=== PATIENT | female | born 1930 | race Caucasian/White ===

== ENCOUNTER 2018-11-22 05:40 | Day surgery (SDC) | payer MEDICARE ==
[~2018-11-22] VITALS: Ht 162.6 cm; Wt 56.0 kg
[2018-11-22 06:11] VITALS: BP 197/92
[2018-11-22] MEDS ORDERED: LACTATED RINGERS 1,000 ML IV SCH (06:12)
[2018-11-22] MEDS ORDERED: LISI-170 PO (06:33)
[2018-11-22] MEDS ORDERED: ASPI-515 PO (06:33)
[2018-11-22] MEDS ORDERED: TRAZ50TA66 PO (06:33)
[2018-11-22] MEDS ORDERED: CALC-76 PO (06:33)
[2018-11-22] MEDS ORDERED: AMIO200T42 PO (06:33)
[2018-11-22] MEDS ORDERED: METO50TA82 PO (06:33)
[2018-11-22] MEDS ORDERED: ASCO500T8 PO (06:33)
[2018-11-22] MEDS ORDERED: CHLO25TA PO (06:33)
[2018-11-22] MEDS ORDERED: PROPOFOL 10 MG/ML, 20ML ONE (07:00)
[2018-11-22] MEDS ORDERED: ONDANSETRON 2MG/ML, 2ML ONE (07:00)
[2018-11-22] MEDS ORDERED: FLUORESCEIN SODIUM 500 MG/5 ML ONE (07:07)
[2018-11-22] MEDS ORDERED: LIDOCAINE 1%-EPI 1:100K, 30ML ONE (07:07)
[2018-11-22] MEDS ORDERED: NEOMY/POLYMYXIN B GU IRR. 1 ML ONE (07:07)
[2018-11-22] MEDS ORDERED: THROMBIN 5,000 UNIT VIAL TP ONE (07:07)
[2018-11-22] MEDS ORDERED: FENTANYL PF 100 MCG/2ML ONE (07:09)
[2018-11-22] MEDS ORDERED: PROPOFOL 50 ML ONE (07:09)
[2018-11-22 07:15] LABS: ALBUMIN 3.6 g/dL (3.4-5.0); ANION GAP 7 mmol/L (5-15); CALCIUM 9.7 mg/dL (8.5-10.1); CHLORIDE 107 mmol/L (98-107)
[2018-11-22 07:18] LABS: ALANINE AMINOTRANSFERASE 20 U/L (12-78); ALKALINE PHOSPHATASE 50 U/L (45-117); BILIRUBIN,TOTAL 0.3 mg/dL (0.2-1.0); CREATININE 0.86 mg/dL (0.55-1.02)
[2018-11-22] MEDS ORDERED: OXYcodone 5 MG/5 ML ORAL.SOL UDC PO PRN (08:00)
[2018-11-22] MEDS ORDERED: EPHEDRINE 50 MG/ML, 1ML IM PRN (08:00)
[2018-11-22] MEDS ORDERED: ACETAMINOPHEN 325 MG TABLET PO PRN (08:00)
[2018-11-22] MEDS ORDERED: METOPROLOL 1 MG/ML, 5ML IV PRN (08:00)
[2018-11-22] MEDS ORDERED: PROMETHAZINE 12.5 MG SUPP PR PRN (08:00)
[2018-11-22] MEDS ORDERED: FENTANYL PF 100 MCG/2ML IV PRN (08:00)
[2018-11-22] MEDS ORDERED: MORPHINE SULFATE 4 MG/ML, 1ML IVPush PRN (08:00)
[2018-11-22] MEDS ORDERED: ONDANSETRON 2MG/ML, 2ML IV PRN (08:00)
[2018-11-22] MEDS ORDERED: ONDANSETRON ODT 8 MG PO PRN (08:00)
[2018-11-22] MEDS ORDERED: hydrALAzine 20 MG/ML, 1ML IV PRN (08:00)
[2018-11-22] MEDS ORDERED: MIDAZOLAM 1 MG/ML, 2ML IV PRN (08:00)
== END 2018-11-22 10:15 | disposition home or self-care (01) ==
LOC: OUT 05:40
PROVIDERS: ATTEND Obstetrics & Gynecology
DX: N99.3 Prolapse of vaginal vault after hysterectomy (principal); N39.3 Stress incontinence (female) (male); I25.10 Atherosclerotic heart disease of native coronary artery without angina pectoris; N32.81 Overactive bladder; E78.5 Hyperlipidemia, unspecified; I10 Essential (primary) hypertension; Z90.710 Acquired absence of both cervix and uterus; Z79.82 Long term (current) use of aspirin; Z79.899 Other long term (current) drug therapy
CPT/HCPCS: 36415; 57160; 57250; 80053; 93005; C1815; J2405; J2704; J3010; J3490

== ENCOUNTER 2019-11-11 14:30 | Observation (INO) | payer MEDICARE ==
[~2019-11-11] VITALS: Ht 162.6 cm; Wt 59.0 kg
[~2019-11-11 14:30] MED LIST: AMIO200T42 PO; ASCO500T8 PO; ASPI-515 PO; CALC-76 PO; CHLO25TA PO; LISI-170 PO; METO50TA82 PO; TRAZ50TA66 PO
[2019-11-11] MEDS ORDERED: SPIR25TA5 PO (15:01)
[2019-11-11] MEDS ORDERED: ATOR20TA86 PO (15:01)
[2019-11-11] MEDS ORDERED: CLON0.1T2 PO (15:01)
[2019-11-11 15:06] VITALS: BP 200/79
[2019-11-11] MEDS ORDERED: LACTATED RINGERS 1,000 ML IV SCH (15:18)
[2019-11-11 15:39] LABS: ALBUMIN 3.9 g/dL (3.4-5.0); ANION GAP 8 mmol/L (5-15); CALCIUM 9.8 mg/dL (8.5-10.1); CHLORIDE 104 mmol/L (98-107)
[2019-11-11 15:43] LABS: ALANINE AMINOTRANSFERASE 17 U/L (12-78); ALKALINE PHOSPHATASE 58 U/L (45-117); BILIRUBIN,TOTAL 0.4 mg/dL (0.2-1.0); CREATININE 0.95 mg/dL (0.55-1.02); TOTAL PROTEIN 7.2 g/dL (6.4-8.2)
[2019-11-11] MEDS ORDERED: FENTANYL PF 100 MCG/2ML ONE (15:46)
[2019-11-11] MEDS ORDERED: ACETAMINOPHEN 325 MG TABLET PO PRN (16:00)
[2019-11-11] MEDS ORDERED: LABETALOL 5MG/ML, 20ML IV PRN (16:00)
[2019-11-11] MEDS ORDERED: ONDANSETRON 2MG/ML, 2ML IV PRN (16:00)
[2019-11-11] MEDS ORDERED: hydrALAzine 20 MG/ML, 1ML IV PRN (16:00)
[2019-11-11] MEDS ORDERED: PROMETHAZINE 25 MG/ML, 1ML IV PRN (16:00)
[2019-11-11] MEDS ORDERED: OXYcodone 5 MG/5 ML ORAL.SOL UDC PO PRN (16:00)
[2019-11-11] MEDS ORDERED: FENTANYL PF 100 MCG/2ML IV PRN (16:00)
[2019-11-11] MEDS ORDERED: HYDROmorphone 2 MG/ML, 1ML IVPush PRN (16:00)
[2019-11-11] MEDS ORDERED: MORPHINE SULFATE 4 MG/ML, 1ML IVPush PRN (16:00)
[2019-11-11] MEDS ORDERED: MIDAZOLAM 1 MG/ML, 2ML ONE (16:03)
[2019-11-11] MEDS ORDERED: PROPOFOL 10 MG/ML, 20ML ONE (16:09)
[2019-11-11] MEDS ORDERED: CEFAZOLIN 1,000 MG ONE (16:09)
[2019-11-11] MEDS ORDERED: hydrALAzine 20 MG/ML, 1ML ONE (16:15)
[2019-11-11] MEDS ORDERED: LEVOFLOXACIN 250 MG TABLET PO SCH (17:00)
[2019-11-11] MEDS ORDERED: ONDANSETRON 2MG/ML, 2ML IVPush PRN (17:00)
[2019-11-11 18:38] VITALS: BP 138/76
[2019-11-11] MEDS: metroNIDAZOLE 500 MG TABLET PO SCH (18:45)
[2019-11-12 00:07] VITALS: BP 167/76
[2019-11-12] MEDS: metroNIDAZOLE 500 MG TABLET PO SCH ×2 (03:11→10:37)
[2019-11-12 04:00] VITALS: BP 154/72
[2019-11-12 06:30] VITALS: BP 189/91
[2019-11-12 06:52] VITALS: BP 119/75
[2019-11-12 08:44] VITALS: BP 156/80
[2019-11-12] MEDS ORDERED: LISINOPRIL 20 MG TABLET PO SCH (09:00)
[2019-11-12] MEDS ORDERED: SPIRONOLACTONE 25 MG TABLET PO SCH (09:00)
[2019-11-12] MEDS ORDERED: LEVO500T47 PO (09:25)
[2019-11-12] MEDS ORDERED: METR500T PO (09:26)
[2019-11-12 11:14] VITALS: BP 135/79
== END 2019-11-12 13:50 | disposition home or self-care (01) ==
LOC: OR 14:30 → ORIP 16:58 → 4NE 17:28 → DCLOUNGE 11-12 13:45
PROVIDERS: ADMIT Obstetrics & Gynecology; ATTEND Obstetrics & Gynecology
DX: T19.2XXA Foreign body in vulva and vagina, initial encounter (principal); I10 Essential (primary) hypertension; N39.0 Urinary tract infection, site not specified; Z79.82 Long term (current) use of aspirin; Z79.899 Other long term (current) drug therapy
CPT/HCPCS: 36415; 57415; 80053; 87070; 87075; 87205; 93005; G0378; J0360; J0690; J2250; J2704; J3010; J7120